=== PATIENT | male | born 1990 | race Caucasian/White ===

== ENCOUNTER 2018-07-14 21:29 | Emergency (ER) | payer OTHER ==
[~2018-07-14] VITALS: Ht 172.7 cm; Wt 84.0 kg
[2018-07-14 22:49] VITALS: BP 125/74
== END 2018-07-14 22:52 | disposition home or self-care (01) | DRG 563 ==
LOC: ED 21:29
DX: S93.401A Sprain of unspecified ligament of right ankle, initial encounter (principal); X50.1XXA Overexertion from prolonged static or awkward postures, initial encounter; Y92.89 Other specified places as the place of occurrence of the external cause

== ENCOUNTER 2018-07-17 16:40 | Emergency (ER) | payer SELFPAY ==
[~2018-07-17] VITALS: Ht 172.7 cm; Wt 79.5 kg
[2018-07-17] MEDS ORDERED: LASIX 40 MG40 MG/TAB PO (17:00)
[2018-07-17] MEDS ORDERED: ADULT ASPIRIN E81 MG PO (17:01)
[2018-07-17 17:34] LABS: URINE BILIRUBIN - DIPSTICK NEGATIVE (NEGATIVE); URINE BLOOD DIPSTICK TRACE-INTACT (NEGATIVE); URINE COLOR YELLOW; URINE GLUCOSE - DIPSTICK NEGATIVE (NEGATIVE); URINE KETONE TRACE mg/dL (NEGATIVE); URINE LEUK ESTERASE NEGATIVE (NEGATIVE); URINE NITRITE - DIPSTICK NEGATIVE (Negative); URINE PH 5.5 (4.5-8.0); URINE PROTEIN - DIPSTICK TRACE mg/dL (NEG-TRACE); URINE SPECIFIC GRAVITY >=1.030; URINE UROBILINOGEN - DIPSTICK 0.2 E.U./dL (0.2)
[2018-07-17] MEDS ORDERED: FLEXERIL PO (18:20)
[2018-07-17] MEDS ORDERED: TORADOL PO (18:20)
[2018-07-17 18:24] VITALS: BP 131/81
== END 2018-07-17 18:38 | disposition home or self-care (01) | DRG 552 ==
LOC: ED 16:40
PROVIDERS: Emergency Medicine
DX: M54.9 Dorsalgia, unspecified (principal)